=== PATIENT | female | born 1975 | race Two or more races ===

== ENCOUNTER 2024-09-02 21:18 | Emergency (ER) | payer OTHER, SELFPAY ==
[2024-09-02 21:19] VITALS: BMI 30.8
[2024-09-02 22:08] VITALS: BP 158/97; PULSE 104; RESP 20; TEMP 36.9; O2SAT 98
--- NOTE | 2024-09-02 22:56 | PD.EDWOUND ---
ED Wound/Laceration-RME/HPI General Chief Complaint: Wound/Laceration Stated Complaint: LAC TO LEFT THUMB Time Seen by Provider: 09/02/24 21:35 Arrival date/time: 09/02/24 21:18 48-year-old female reports with complaints of a laceration to the left thumb. Patient states while working she caught herself on a metal box. She denies numbness tingling decreased range of motion or weakness of the thumb. Patient does not recall last tetanus update and denies chance of Limitations: no limitations Related Data Allergies Allergy/AdvReac Type Severity Reaction Status Date / Time No Known Allergies Allergy Verified 09/02/24 21:22 Review of Systems Constitutional Constitutional: Denies chills and Denies fever(s) Musculoskeletal Musculoskeletal: Denies arthralgias, Denies deformity, Denies joint swelling, Denies numbness and Denies tingling Integumentary/Breasts Skin/Breast: Denies unusual bruising and Reports wounds Neurologic Neurologic: Denies numbness and Denies tingling Hematologic/Lymphatic Hematologic/Lymphatic: Reports easy bleeding and Reports easy bruising Past Medical History Social History SMOKING STATUS: Never smoker ED Exam General Limitations: Present no limitations General appearance: Present alert and in no apparent distress Extremities Exam Extremities exam: Present other (left thumb with a 2 cm laceration volar aspect, no tendon or ligament involvement, FROM, cap refill < 2 sec, remainder of hand unremarkable) Neurological Exam Neurological exam: Present alert, oriented X3 and CN II-XII intact Psychiatric Psychiatric exam: Present normal affect and normal mood Skin Skin exam: Present warm, dry, intact and normal color Course Quality Measures none Orders Category Date Time Status Irrigate [Wound Care] NOW Care 09/02/24 22:58 Active Set Up Suture Tray STAT Care 09/02/24 22:58 Active Lidocaine 1% 20 ml [Xylocaine 1% 20 ML] Med 09/02/24 22:58 Discontinued 10 ml INFL X1 ONE Tet,Diphth,Pertuss(Acell)-Tdap [Boostrix Vacc] Med 09/02/24 22:58 Discontinued 0.5 ml IMI .ONCE ONE Vital Signs Vital signs: Vital Signs Temperature 98.4 F 09/02/24 22:08 Pulse Rate 104 H 09/02/24 22:08 Respiratory Rate 20 09/02/24 22:08 Blood Pressure 158/97 H 09/02/24 22:08 Pulse Oximetry (%) 98 09/02/24 22:08 Oxygen Delivery Method Room Air 09/02/24 22:08 Procedures -ED Laceration Laceration 1: Site: hand (thumb) Side (If applicable): left Size (cm): 2 Description: linear Depth: simple, single layer Local Anesthetic: lidocaine 1% Amount of anesthesia used (mL): 5 Pre-repair: irrigated extensively Skin layer closed with: nylon Size (cm): 3-0 Number of sutures: 3 Technique: simple, interrupted (Tolerated well, neurovascular remained intact) Wound / Laceration Patient data External records reviewed:: None Clinical information provided by:: patient Social determinants that could affect healthcare access:: none Patient has the following chronic illnesses:: none How is presenting disease/condition affected by chronic disease/condition?: no chronic disease Evaluation data The following diagnostics were reviewed and interpreted by me:: other (specify) Lab and/or radiology exams considered but not ordered:: none Interpretation Summary: n/a Medications / Prescriptions Medications or Prescriptions considered but not ordered:: none Medication administrations:: Medication Administration History Discontinued Medications Diphtheria/Tetanus/Acell Pertussis (Diphth,Pertuss(Acell),Tet Vac 0.5 Ml Vial) 0.5 ml IMi .ONCE ONE Stop: 09/02/24 22:59 Last Admin: 09/02/24 23:21 Dose: 0.5 ml Documented By: Lidocaine HCl (Lidocaine Hcl 1% 20 Ml Vial) 10 ml INFL X1 ONE Stop: 09/02/24 22:59 Last Admin: 09/02/24 23:21 Dose: 10 ml Documented By: as above Consultations Consultation(s) initiated? (list below): No Diagnosis Wound Differential Diagnosis: laceration, abrasion and avulsion of skin Most likely diagnosis given after review of the tests above:: Left thumb laceration Admission Indicated Admission indicated?: not indicated Admission Request Was there a request for admission?: No Disposition Plan Disposition Plan: Discharge Discharge Attestation Discharge Attestation: The patient and all family members were given an opportunity to ask questions and understood the discharge instructions. Discharge instructions specifically effects, indications for sooner follow up or return to the emergency department, and the expected course of current diagnosis. Patient condition: Stable Discharge Plan Plan Patient Disposition: HOME (Self Care) Prescriptions/Referrals Referrals: No Primary/Family,Physician [Primary Care Provider] - In 1 week Problem List Clinical Impression: Laceration of left thumb Patient/Caregiver Discharge Instructions Discharge Activity: activity as tolerated Education Materials: ED Laceration: All Closures Additional Instructions: Keep the area clean and dry, you may remove the bandage in 24 hours clean the wound dry thoroughly and place a new clean dry bandage. Follow-up with your primary care Workmen[employer]. provider in 48 hours for reevaluation. Have your sutures removed in 10 days Print Language: [place] Stand Alone Forms: [employer] Award Info., Patient Portal Info Letter
[2024-09-02] MEDS: DIPHTH,PERTUSS(ACELL),TET VAC 0.5 ML VIAL IMi (23:21)
[2024-09-02] MEDS: LIDOCAINE HCL 1% 20 ML VIAL 10 ML INFL (23:21)
== END 2024-09-02 23:58 | disposition home or self-care (01) ==
PROVIDERS: Emergency Provider Emergency Medicine
DX: S61.012A Laceration without foreign body of left thumb without damage to nail, initial encounter (principal); X58.XXXA Exposure to other specified factors, initial encounter; Y99.0 Civilian activity done for income or pay; Z23 Encounter for immunization
CPT/HCPCS: 12001; 90471; 90715; 99283; J3490